=== PATIENT | male | born 1965 | race Caucasian/White ===

== ENCOUNTER 2019-12-25 16:20 | Inpatient (IN) | payer OTHER ==
--- NOTE | 2019-12-25 21:52 | BHS.RME ---
Substance Use & Tx History - Last Treatment Date of last treatment: 2014 Where was last treatment: Detox Physical/Psych/Mental Status - Behavior Eye Contact: Normal - Cooperativeness Cooperativeness: Cooperative - Thinking Thought Processes: Logical - Physical Health Problems Is patient presently having any pain?: No Does patient presently have any injuries (include location): No Does patient currently have a fever: No COWS - Scale Resting Pulse: 1= [place] 81-100 Sweatin= Chills/Flushing Restless Observation: 3= Extraneous Movement Pupil Size: 0= Normal to Room Light Bone or Joint Aches: 2= Severe Diffuse Aches Runny Nose/ Eye Tearin= Runny Nose/Eyes GI Upset > 30mins: 1= Stomach Cramp Tremor Observation: 0= None Yawning Observation: 1= 1-2x During Session Anxiety or Irritability: 1=Feels Anxious/Irritable Goose Flesh Skin: 0=Smooth Skin COWS Score: 12
--- NOTE | 2019-12-25 22:03 | HP ---
COWS - Scale Resting Pulse: 1= [place] 81-100 Sweatin= Chills/Flushing Restless Observation: 3= Extraneous Movement Pupil Size: 0= Normal to Room Light Bone or Joint Aches: 2= Severe Diffuse Aches Runny Nose/ Eye Tearin= Runny Nose/Eyes GI Upset > 30mins: 1= Stomach Cramp Tremor Observation: 0= None Yawning Observation: 1= 1-2x During Session Anxiety or Irritability: 1=Feels Anxious/Irritable Goose Flesh Skin: 0=Smooth Skin COWS Score: 12 CIWA Score - Admission Criteria OASAS Guidelines: Admission for Medically Managed Detox: Requires at least one of the followin. CIWA greater than 12 2. Seizures within the past 24 hours 3. Delirium tremens within the past 24 hours 4. Hallucinations within the past 24 hours 5. Acute intervention needed for co occurring medical disorder 6. Acute intervention needed for co occurring psychiatric disorder 7. Severe withdrawal that cannot be handled at a lower level of care (continued vomiting, continued diarrhea, abnormal vital signs) requiring intravenous medication and/or fluids 8. Admitting History and Physical - Smoking History Smoking history: Current every day smoker Have you smoked in the past 12 months: Yes Aproximately how many cigarettes per day: 10 - Alcohol/Substance Use Hx Alcohol Use: Yes Admission ROS [facility] Allergies/Adverse Reactions: Allergies Allergy/AdvReac Type Severity Reaction Status Date / Time No Known Allergies Allergy Verified 02/11/15 17:14 History of Present Illness: 54 y.o. male requesting detox from opiate use , reports 5 bags/day iv in UE , denies abscess , + OD x5 , most recently " years ago" ,latest use this morning before noon . met - denies tobacco : 10/26 ppd pmhx : gerd on Nexium , psoriasis on Clobetasol , hiv on Descovy / Tivicay , hep C no tx , liver dz on Lactulose and Doxycycline ( all meds unverified as pharmacy closed at the time of exam ) pshx :appy age 15 psych : denies nkda shx : lives alone , denies legal issues , works construction Exam Limitations: Clinical Condition - Review of Systems Constitutional: Loss of Appetite EENT: reports: No Symptoms Reported, Other (upper and lower dentures) Respiratory: reports: No Symptoms reported Cardiac: reports: No Symptoms Reported GI: reports: See HPI : reports: No Symptoms Reported Musculoskeletal: reports: See HPI Integumentary: reports: See HPI Neuro: reports: No Symptoms reported Endocrine: reports: No Symptoms Reported Hematology: reports: No Symptoms Reported Psychiatric: reports: Orientated x3, Agitated Patient History - Patient Medical History Hx Anemia: No Hx Asthma: No Hx Chronic Obstructive Pulmonary Disease (COPD): No Hx Cancer: No Hx Cardiac Disorders: No Hx Congestive Heart Failure: No Hx Hypertension: No Hx Hypercholesterolemia: No Hx Pacemaker: No HX Cerebrovascular Accident: No Hx Seizures: No Hx Dementia: No Hx Diabetes: No Hx Gastrointestinal Disorders: Yes (PEPTIC ULCER) Hx Liver Disease: No Hx Genitourinary Disorders: No Hx Sexually Transmitted Disorders: No Hx Renal Disease (ESRD): No Hx Thyroid Disease: No Hx Human Immunodeficiency Virus (HIV): Yes (since 1999. PT HAS NOT TAKEN MEDS SINCE 3 YRS AGO BUT HAS RESTARTED NOW.) Hx Hepatitis C: No Hx Depression: Yes (AND INSOMNIA) Hx Suicide Attempt: No (DENIES) Hx Bipolar Disorder: No Hx Schizophrenia: No - Patient Surgical History Past Surgical History: Yes Hx Neurologic Surgery: No Hx Cataract Extraction: No Hx Cardiac Surgery: No Hx Lung Surgery: No Hx Breast Surgery: No Hx Breast Biopsy: No Hx Abdominal Surgery: No Hx Appendectomy: Yes (at age of 15 years) Hx Cholecystectomy: No Hx Genitourinary Surgery: No Hx Section: No Hx Orthopedic Surgery: Yes (infection of right index 13yrs old) Anesthesia Reaction: No - PPD History Date: 09/06/14 Results: 0 mm - Smoking Cessation Smoking history: Current every day smoker Have you smoked in the past 12 months: Yes Aproximately how many cigarettes per day: 10 Cigars Per Day: 0 Hx Chewing Tobacco Use: No Initiated information on smoking cessation: Yes 'Breaking Loose' booklet given: 12/25/19 Admission Physical Exam BHS - Physical General Appearance: Yes: Mild Distress, Anxious HEENTM: Yes: EOMI, Hearing grossly Normal, Normocephalic, Normal Voice, Other ( edentulous, dentures upper/ lower) Respiratory: Yes: Chest Non-Tender, Lungs Clear, Normal Breath Sounds, No Respiratory Distress, No Accessory Muscle Use Neck: Yes: No masses,lesions,Nodules, Trachea in good position Cardiology: Yes: Regular Rhythm, Regular Rate, S1, S2 Abdominal: Yes: Normal Bowel Sounds, Non Tender, Soft Back: Yes: Normal Inspection Musculoskeletal: Yes: Gait Steady Extremities: Yes: Normal Range of Motion, Non-Tender Neurological: Yes: Fully Oriented, Alert, Motor Strength 5/5, Normal Mood/Affect Integumentary: Yes: Warm, Track [place], Other (scattered brandon on abdomen) - Diagnostic (1) Nicotine dependence Current Visit: Yes Status: Chronic Qualifiers: Nicotine product type: cigarettes (2) Opioid dependence Current Visit: Yes Status: Chronic Inpatient Rehab Admission - Rehab Decision to Admit Inpatient rehab admission?: No
[2019-12-25] MEDS ORDERED: MENTHOL/PHENOL 1 EACH UD MM PRN (22:16)
[2019-12-25] MEDS ORDERED: IBUPROFEN 400 MG TABLET (FP) PO PRN (22:16)
[2019-12-25] MEDS ORDERED: ONDANSETRON *ODT* 4 MG TABLET SL ONE (22:16)
[2019-12-25] MEDS ORDERED: MAGNESIUM CITRATE 300 ML BOTTLE PO PRN (22:16)
[2019-12-25] MEDS ORDERED: METHOCARBAMOL 500 MG TABLET PO PRN (22:16)
[2019-12-25] MEDS ORDERED: MAG HYDROX/AL HYDROX/SIMETH 30 ML UNIT-DOSE CUP PO PRN (22:16)
[2019-12-25] MEDS ORDERED: ACETAMINOPHEN 325 MG TABLET (FP) PO PRN (22:16)
[2019-12-25] MEDS ORDERED: BISMUTH SUBSALICYLATE 524 MG/30 ML UD PO PRN (22:16)
[2019-12-25] MEDS ORDERED: MAGNESIUM HYDROX 2400MG/30ML ORAL SUSPENSION 30 ML CUP PO PRN (22:16)
[2019-12-25] MEDS ORDERED: METHADONE HCL 10 MG TABLET (FOR DETOX USE ONLY) PO ONE (22:17)
[2019-12-25] MEDS ORDERED: cloNIDine HCL 0.1 MG TABLET PO PRN (22:17)
[2019-12-25 23:11] VITALS: BMI 23.9
[2019-12-26] MEDS: ACETAMINOPHEN 325 MG TABLET (FP) PO PRN (01:24)
[2019-12-26] MEDS: hydrOXYzine PAMOATE 25 MG CAPSULE (FP) PO SCH ×2 (07:45→10:25)
[2019-12-26] MEDS ORDERED: diazePAM 5 MG TABLET PO PRN (09:35)
--- NOTE | 2019-12-26 09:41 | PN ---
S COWS - Scale Resting Pulse: 0= [place] 80 or Below Sweatin= No chills or Flushing Restless Observation: 1= Difficult to Sit Still Pupil Size: 1= Pupils >than Normal Bone or Joint Aches: 2= Severe Diffuse Aches Runny Nose/ Eye Tearin= Nasal Congestion GI Upset > 30mins: 1= Stomach Cramp Tremor Observation of Outstretched Hands: 2= Slight Tremor Visible Yawning Observation: 1= 1-2x During Session Anxiety or Irritability: 2=Irritable/Anxious Goose Flesh Skin: 0=Smooth Skin COWS Score: 11 [facility] Progress Note (SOAP) Subjective: alert,irritable,anxious,interrupted sleep,tremor,pain in the body and back,nausea Objective: 12/26/19 09:38 Vital Signs Temperature 97.9 F 12/26/19 06:05 Pulse Rate 60 12/26/19 06:05 Respiratory Rate 18 12/26/19 06:05 Blood Pressure 93/65 12/26/19 06:05 O2 Sat by Pulse Oximetry (%) 12/26/19 09:39 labs pending Assessment: 12/26/19 09:39 withdrawal symptom Plan: continue detox methadone regimen,valium 10 mgs po q4 hrs prn for withdrawal symptom,psychiatric consultation for anxiety,depression,insomnia
[2019-12-26] MEDS ORDERED: METHADONE HCL 5 MG TABLET (FOR DETOX USE ONLY) PO ONE (10:00)
--- NOTE | 2019-12-26 11:20 | PN ---
S Progress Note Note: patient is in severe withdrawal,using iv heroin,up to heroin 8 to 10 bags/day,regimen changed to severe methadone regimen,and valium 10 mgs po q 4 hrs for 72 hrs prn
[2019-12-26] MEDS ORDERED: cloNIDine HCL 0.1 MG TABLET PO PRN (11:23)
[2019-12-26] MEDS ORDERED: hydrOXYzine PAMOATE 50 MG CAPSULE (FP) PO PRN (11:25)
[2019-12-26] MEDS: NICOTINE 7 MG/24 HOURS TOPICAL PATCH TD SCH (11:50)
[2019-12-26] MEDS ORDERED: METHADONE HCL 10 MG TABLET (FOR DETOX USE ONLY) PO ONE (12:05)
[2019-12-26] MEDS: PRENATAL VITAMINS W/ FOLIC ACID TABLET (FP) PO SCH (12:50)
[2019-12-26 13:12] LABS: HEMATOCRIT 39.7 % (35.4-49); HEMOGLOBIN 13.5 GM/dL (11.7-16.9); MEAN CELL VOLUME 85.3 fl (80-96); MEAN PLT VOLUME 10.2 fl (7.5-11.1); PLATELET COUNT 121 K/MM3 (134-434); RBC 4.65 M/mm3 (4.00-5.60); RDW 14.5 % (11.9-15.9); WHITE BLOOD COUNT 3.2 K/mm3 (4.0-10.0)
[2019-12-26 13:19] LABS: BILIRUBIN,TOTAL 0.6 mg/dL (0.2-1); BLOOD UREA NITROGEN 11.6 mg/dL (7-18); CALCIUM 8.7 mg/dL (8.5-10.1); CREATININE 0.6 mg/dL (0.55-1.3)
--- NOTE | 2019-12-26 14:06 | EKG ---
Test Reason : Blood Pressure : / mmHG Vent. Rate : 060 BPM Atrial Rate : 060 BPM P-R Int : 162 ms QRS Dur : 076 ms QT Int : 440 ms P-R-T Axes : 016 035 028 degrees QTc Int : 440 ms NORMAL SINUS RHYTHM NORMAL ECG NO PREVIOUS ECGS AVAILABLE Confirmed by AC GARCIA MD ([id number]) on 12/26/2019 2:06:03 PM Referred By: Confirmed By:AC GARCIA MD
[2019-12-26] MEDS: MELATONIN 5 MG TABLETS PO SCH (23:35)
[2019-12-26] MEDS: THIAMINE HCL 100 MG TABLET (FP) PO SCH (23:35)
--- NOTE | 2019-12-27 08:18 | CONSULT ---
[facility] Psychiatric Consult - Data Date of interview: 12/27/19 Admission source: Self-referred Identifying data: Mr Morrison is a 54 years old single male, father of 2 sons, unemployed receiving HAS[employer] benefit, domiciled seeking detox treatment for opioid Substance Abuse History: Reports history of heroin use. Refer to addiction counselor's summary for further information Medical History: Significant for PUD, HIV+, GERD, hepatitis C, low back pain/scoliosis, psoriasis and surgeries(infection right index, appendectomy at age 15). Smokes 10 cigarettes daily Psychiatric History: Denies history of previous psychiatric treatment. However, reports experiencing difficulty to sleep Physical/Sexual Abuse/Trauma History: Denies history of abuse as a child or DV relationship as an adult Mental Status Exam - Mental Status Exam Alert and Oriented to: Time, Person Cognitive Function: Fair Patient Appearance: Disheveled Mood: Hopeful, Euthymic Patient Behavior: Cooperative Speech Pattern: Clear Voice Loudness: Normal Thought Process: Intact, Goal Oriented Hallucinations: Denies Suicidal Ideation: Denies Homicidal Ideation: Denies Insight/Judgement: Poor Sleep: Poorly Appetite: Poor Muscle strength/Tone: Normal Gait/Station: Normal Psychiatric Findings - Problem List ([place] 1, 2,3) (1) Substance-induced sleep disorder Current Visit: No Status: Acute (2) Uncomplicated opioid dependence Current Visit: Yes Status: Acute (3) Nicotine dependence Current Visit: Yes Status: Chronic Qualifiers: Nicotine product type: cigarettes (4) Hepatitis C Current Visit: No Status: Chronic (5) GERD (gastroesophageal reflux disease) Current Visit: No Status: Chronic (6) HIV (human immunodeficiency virus infection) Current Visit: No Status: Chronic (7) Psoriasis Current Visit: No Status: Chronic - Initial Treatment Plan Initial Treatment Plan: 1) Start Belsomra 10 mg po HS prn for insomnia. 2) Continue inpatient detoxification
[2019-12-27] MEDS ORDERED: METHADONE HCL 5 MG TABLET (FOR DETOX USE ONLY) ONE (09:12)
[2019-12-27] MEDS ORDERED: METHADONE HCL 10 MG TABLET (FOR DETOX USE ONLY) ONE (09:13)
[2019-12-27] MEDS ORDERED: METHADONE (DETOX) 20 MG, METHADONE (DETOX) 5 MG PO ONE (10:00)
[2019-12-27] MEDS ORDERED: METHADONE HCL 10 MG TABLET (FOR DETOX USE ONLY) PO ONE (10:00)
--- NOTE | 2019-12-27 10:58 | PN ---
S COWS - Scale Resting Pulse: 0= [place] 80 or Below Sweatin= No chills or Flushing Restless Observation: 1= Difficult to Sit Still Pupil Size: 1= Pupils >than Normal Bone or Joint Aches: 1= Mild Discomfort Runny Nose/ Eye Tearin= Runny Nose/Eyes GI Upset > 30mins: 1= Stomach Cramp Tremor Observation of Outstretched Hands: 2= Slight Tremor Visible Yawning Observation: 1= 1-2x During Session Anxiety or Irritability: 2=Irritable/Anxious Goose Flesh Skin: 0=Smooth Skin COWS Score: 11 [facility] Progress Note (SOAP) Subjective: alert,irritable,anxious,interrupted sleep,pain in the body and back, Objective: 12/27/19 10:55 Vital Signs Temperature 98.8 F 12/27/19 08:55 Pulse Rate 79 12/27/19 08:55 Respiratory Rate 18 12/27/19 08:55 Blood Pressure 93/53 L 12/27/19 08:55 O2 Sat by Pulse Oximetry (%) Laboratory Last Values WBC 3.2 K/mm3 (4.0-10.0) L 12/26/19 09:00 RBC 4.65 M/mm3 (4.00-5.60) 12/26/19 09:00 Hgb 13.5 GM/dL (11.7-16.9) 12/26/19 09:00 Hct 39.7 % (35.4-49) 12/26/19 09:00 MCV 85.3 fl (80-96) 12/26/19 09:00 MCH 29.0 pg (25.7-33.7) 12/26/19 09:00 MCHC 34.0 g/dl (32.0-35.9) 12/26/19 09:00 RDW 14.5 % (11.9-15.9) 12/26/19 09:00 Plt Count 121 K/MM3 (134-434) L 12/26/19 09:00 MPV 10.2 fl (7.5-11.1) 12/26/19 09:00 Sodium 140 mmol/L (136-145) 12/26/19 09:00 Potassium 4.0 mmol/L (3.5-5.1) 12/26/19 09:00 Chloride 107 mmol/L (98-107) 12/26/19 09:00 Carbon Dioxide 29 mmol/L (21-32) 12/26/19 09:00 Anion Gap 5 MMOL/L (8-16) L 12/26/19 09:00 BUN 11.6 mg/dL (7-18) 12/26/19 09:00 Creatinine 0.6 mg/dL (0.55-1.3) 12/26/19 09:00 Est GFR (CKD-EPI)AfAm 133.04 12/26/19 09:00 Est GFR (CKD-EPI)NonAf 114.79 12/26/19 09:00 Random Glucose 76 mg/dL (74-106) 12/26/19 09:00 Calcium 8.7 mg/dL (8.5-10.1) 12/26/19 09:00 Total Bilirubin 0.6 mg/dL (0.2-1) 12/26/19 09:00 AST 23 U/L (15-37) 12/26/19 09:00 ALT 17 U/L (13-61) 12/26/19 09:00 Alkaline Phosphatase 72 U/L (45-117) 12/26/19 09:00 Total Protein 8.0 g/dl (6.4-8.2) 12/26/19 09:00 Albumin 3.0 g/dl (3.4-5.0) L 12/26/19 09:00 RPR Titer Nonreactive (NONREACTIVE) 12/26/19 09:00 Assessment: 12/27/19 10:56 withdrawal symptom Plan: continue detox methadone regimen,wbc 3.200 probably due to hiv,encourage oral f luid,ensure plus 120 mls po bid
[2019-12-27] MEDS: PRENATAL VITAMINS W/ FOLIC ACID TABLET (FP) PO SCH (11:17)
[2019-12-27] MEDS: NICOTINE 7 MG/24 HOURS TOPICAL PATCH TD SCH (11:18)
[2019-12-27] MEDS: ACETAMINOPHEN 325 MG TABLET (FP) PO PRN (11:18)
[2019-12-27] MEDS: THIAMINE HCL 100 MG TABLET (FP) PO SCH (22:38)
[2019-12-27] MEDS: SUVOREXANT 10 MG TABLET PO PRN (22:40)
[2019-12-27] MEDS: MELATONIN 5 MG TABLETS PO SCH (23:24)
[2019-12-28] MEDS ORDERED: METHADONE HCL 5 MG TABLET (FOR DETOX USE ONLY) PO ONE ×4 (06:00→10:00)
[2019-12-28] MEDS ORDERED: METHADONE HCL 10 MG TABLET (FOR DETOX USE ONLY) PO ONE (10:00)
[2019-12-28] MEDS: NICOTINE 7 MG/24 HOURS TOPICAL PATCH TD SCH (10:46)
[2019-12-28] MEDS: PRENATAL VITAMINS W/ FOLIC ACID TABLET (FP) PO SCH (10:46)
[2019-12-28] MEDS: ACETAMINOPHEN 325 MG TABLET (FP) PO PRN ×2 (10:47→22:06)
--- NOTE | 2019-12-28 10:48 | PN ---
BHS COWS - Scale Resting Pulse: 0= [place] 80 or Below Sweatin= No chills or Flushing Restless Observation: 0= Sits Still Pupil Size: 1= Pupils >than Normal Bone or Joint Aches: 1= Mild Discomfort Runny Nose/ Eye Tearin= Nasal Congestion GI Upset > 30mins: 1= Stomach Cramp Tremor Observation of Outstretched Hands: 1= Tremor [place], Not Seen Yawning Observation: 1= 1-2x During Session Anxiety or Irritability: 2=Irritable/Anxious Goose Flesh Skin: 0=Smooth Skin COWS Score: 8 [facility] Progress Note (SOAP) Subjective: alert,irritable,anxious,interrupted sleep,tremor,pain in the body Objective: 12/28/19 10:46 Vital Signs Temperature 97.9 F 12/28/19 09:00 Pulse Rate 76 12/28/19 09:00 Respiratory Rate 17 12/28/19 09:00 Blood Pressure 104/71 12/28/19 09:00 O2 Sat by Pulse Oximetry (%) Assessment: 12/28/19 10:46 withdrawal symptom Plan: continue detox methadone regimen adjust for less withdrawal symptom
[2019-12-28] MEDS: MELATONIN 5 MG TABLETS PO SCH (22:06)
[2019-12-28] MEDS: THIAMINE HCL 100 MG TABLET (FP) PO SCH (22:06)
[2019-12-28] MEDS: SUVOREXANT 10 MG TABLET PO PRN (22:08)
[2019-12-29] MEDS ORDERED: METHADONE (DETOX) 10 MG, METHADONE (DETOX) 5 MG PO ONE (10:00)
[2019-12-29] MEDS ORDERED: METHADONE HCL 10 MG TABLET (FOR DETOX USE ONLY) PO ONE (10:00)
[2019-12-29] MEDS: PRENATAL VITAMINS W/ FOLIC ACID TABLET (FP) PO SCH (10:06)
[2019-12-29] MEDS: NICOTINE 7 MG/24 HOURS TOPICAL PATCH TD SCH (10:07)
--- NOTE | 2019-12-29 11:42 | PN ---
BHS COWS - Scale Resting Pulse: 0= [place] 80 or Below Sweatin= No chills or Flushing Restless Observation: 1= Difficult to Sit Still Pupil Size: 0= Normal to Room Light Bone or Joint Aches: 1= Mild Discomfort Runny Nose/ Eye Tearin= None GI Upset > 30mins: 0= None Tremor Observation of Outstretched Hands: 0= None Yawning Observation: 0= None Anxiety or Irritability: 1=Feels Anxious/Irritable Goose Flesh Skin: 0=Smooth Skin COWS Score: 3 [facility] Progress Note (SOAP) Subjective: feeling better little sweats Objective: 12/29/19 11:41 Vital Signs Temperature 97.3 F L 12/29/19 08:42 Pulse Rate 73 12/29/19 08:42 Respiratory Rate 18 12/29/19 08:42 Blood Pressure 95/63 12/29/19 08:42 O2 Sat by Pulse Oximetry (%) aaox3 ambulating no acute distress Assessment: 12/29/19 11:41 mild withdrawals Plan: continue detox d/c in am
[2019-12-29 21:36] VITALS: TEMP 97.9
[2019-12-29] MEDS: SUVOREXANT 10 MG TABLET PO PRN (22:27)
[2019-12-29] MEDS: MELATONIN 5 MG TABLETS PO SCH (22:28)
[2019-12-29] MEDS: THIAMINE HCL 100 MG TABLET (FP) PO SCH (22:29)
[2019-12-30] MEDS: ACETAMINOPHEN 325 MG TABLET (FP) PO PRN (05:29)
[2019-12-30] MEDS ORDERED: METHADONE HCL 5 MG TABLET (FOR DETOX USE ONLY) PO ONE (06:00)
[2019-12-30 07:03] VITALS: BP 103/65; PULSE 83
--- NOTE | 2019-12-30 09:12 | DS ---
[facility] Detox Discharge Summary Admission Date: 12/25/19 Discharge Date: 12/30/19 - History Present History: Alcohol Dependence, Cocaine Dependence, MMTP - Physical Exam Results Vital Signs: Vital Signs Temperature 97.9 F 12/30/19 05:20 Pulse Rate 83 12/30/19 05:20 Respiratory Rate 18 12/30/19 05:20 Blood Pressure 103/65 12/30/19 05:20 O2 Sat by Pulse Oximetry (%) Laboratory Tests 12/26/19 12/26/19 12/26/19 09:00 09:00 09:00 WBC 3.2 L RBC 4.65 Hgb 13.5 Hct 39.7 MCV 85.3 MCH 29.0 MCHC 34.0 RDW 14.5 Plt Count 121 L MPV 10.2 Sodium 140 Potassium 4.0 Chloride 107 Carbon Dioxide 29 Anion Gap 5 L BUN 11.6 Creatinine 0.6 Est GFR (CKD-EPI)AfAm 133.04 Est GFR (CKD-EPI)NonAf 114.79 Random Glucose 76 Calcium 8.7 Total Bilirubin 0.6 AST 23 ALT 17 Alkaline Phosphatase 72 Total Protein 8.0 Albumin 3.0 L RPR Titer Nonreactive aaox3 ambulating no acute distress - Treatment Hospital Course: Detox Protocol Followed, Detoxed Safely, Responded well, Discharged Condition Good, Rehab Referral Accepted - Medication Discharge Medications: Ambulatory Orders Dolutegravir Sodium [Tivicay] 50 mg PO DAILY 12/27/19 Emtricitabine/Tenofov Alafenam [Descovy 200-25 mg Tablet (Nf)] 1 tab PO DAILY 12/27/19 Esomeprazole Magnesium [Nexium 24Hr] 40 mg PO DAILY 12/27/19 - Diagnosis (1) Weight decreased Status: Active (2) Alcohol dependence Status: Chronic Qualifiers: Substance use status: uncomplicated Qualified Code(s): F10.20 - Alcohol dependence, uncomplicated (3) Cocaine dependence Status: Acute (4) Depression Status: Acute (5) Insomnia Status: Acute (6) Substance-induced anxiety disorder Status: Acute (7) Substance-induced sleep disorder Status: Acute (8) Uncomplicated opioid dependence Status: Acute (9) GERD (gastroesophageal reflux disease) Status: Chronic (10) HIV (human immunodeficiency virus infection) Status: Chronic (11) Hepatitis C Status: Chronic (12) Nicotine dependence Status: Chronic Qualifiers: Nicotine product type: cigarettes (13) Opioid dependence Status: Chronic (14) Psoriasis Status: Chronic (15) Substance induced mood disorder Status: Chronic - AMA Did Patient Leave Against Medical Advice: No
[2019-12-30] MEDS ORDERED: METHADONE HCL 10 MG TABLET (FOR DETOX USE ONLY) PO ONE (10:00)
[2019-12-31] MEDS ORDERED: METHADONE HCL 5 MG TABLET (FOR DETOX USE ONLY) PO ONE (06:00)
== END 2019-12-30 07:12 | disposition home or self-care (01) | DRG 773 ==
LOC: YASAS 16:20 → Y6N 23:55
PROVIDERS: ADMIT Allergy & Immunology; ATTEND Allergy & Immunology
PROC: HZ2ZZZZ Detoxification Services for Substance Abuse Treatment (ICD-10-PCS; principal; 2019-12-25)
DX: F11.23 Opioid dependence with withdrawal (principal); F10.230 Alcohol dependence with withdrawal, uncomplicated; F14.20 Cocaine dependence, uncomplicated; F17.210 Nicotine dependence, cigarettes, uncomplicated; F19.280 Other psychoactive substance dependence with psychoactive substance-induced anxiety disorder; F19.282 Other psychoactive substance dependence with psychoactive substance-induced sleep disorder; F19.24 Other psychoactive substance dependence with psychoactive substance-induced mood disorder; F32.9 Major depressive disorder, single episode, unspecified; Z21 Asymptomatic human immunodeficiency virus [HIV] infection status; K21.9 Gastro-esophageal reflux disease without esophagitis; L40.9 Psoriasis, unspecified; G47.00 Insomnia, unspecified; B18.2 Chronic viral hepatitis C; R63.4 Abnormal weight loss; Z68.24 Body mass index [BMI] 24.0-24.9, adult; Z87.11 Personal history of peptic ulcer disease
CPT/HCPCS: 36415; 80053; 85027; 86593; 93005; 93010